=== PATIENT | male | born 1955 | race Caucasian/White ===

== ENCOUNTER 2017-03-27 00:28 | Day surgery (SDC) | payer OTHER ==
[2017-01-14 16:48] VITALS: Ht 188 cm; Wt 79.4 kg
[~2017-03-27] VITALS: Ht 188 cm; Wt 79.4 kg
[2017-03-27] VITALS (7 sets, daily range): BP systolic 97–152; BP diastolic 64–96
[~2017-03-27 00:28] MED LIST: ACET-1966 PO; GLUC-198 PO; HYDR-4309 PO; IBUP200C71 PO; KET10 PO; LEVO25TA61 PO; LEVO75TA73 PO; MULT-1335 PO; MULT-976 PO; Pantoprazole Sod PO; VITE400 PO
[2017-03-27] MEDS ORDERED: PROPOFOL EMUL(*) 10MG/ML 20 ML 60 ML ONE (07:07)
[2017-03-27] MEDS ORDERED: LIDOCAINE MPF 1% 5 ML VIAL ONE (07:07)
--- NOTE | 2017-03-27 07:28 | Post Operative Progress Note ---
Post Operative Progress Note Date: Mar 27, 2017 Time: 11:28 Surgeon: estrellita Anesthesia: dr le Pre-Op Diagnosis: screening colonoscopy Post-Op Diagnosis: 3 mm polyp at 55 cm Procedure(s): colonoscopy with polypectomy MARILU CALDERA MD Mar 27, 2017 07:28
--- NOTE | 2017-03-27 07:29 | Short(Outpt) Discharge Summary ---
Discharge Summary Reason for Hosp/Final Diag: (1) Encounter for screening colonoscopy Hospital Course & Plan: 3 mm polyp at 55cm Departure Discharge to: Home Discharge Instructions Home Meds Reported Medications Levothyroxine Sodium (LEVOTHYROXINE SODIUM) 75 Mcg Tablet, 75 MCG PO QDAY, TAB 08/03/15 Discontinued Reported Medications Multivitamin With Minerals (MULTIPLE VITAMIN) 1 Each Tablet, 1 EACH PO DAILY, TAB 01/13/17 Discontinued Scripts Hydrocodone Bit/Acetaminophen (NORCO 5-325 TABLET) 1 Each Tablet, 1-2 EACH PO Q4H Y for PAIN, #30 TAB Prov:MARILU CALDERA MD 01/15/17 Ketorolac Tromethamine (KETOROLAC TROMETHAMINE) 10 Mg Tab, 10 MG PO Q6H, #20 TAB Prov:MARILU CALDERA MD 01/15/17 Diet: Regular Activity: As Tolerated MARILU CALDERA MD Mar 27, 2017 07:29
[2017-03-27] MEDS ORDERED: LIDOCAINE/SOD BICARB 8.4% SYR ID ONE (10:15)
[2017-03-27] MEDS ORDERED: MIDAZOLAM 2 MG/2 ML VIAL IVP PRN (10:15)
[2017-03-27] MEDS ORDERED: NORMOSOL R SOLN(*) 1000 ML BAG 1,000 ML IV PRN (10:15)
--- NOTE | 2017-03-27 12:16 | NACHTIGAL COLONOSCOPY ---
EVENT DATE: March 27, 2017 SURGEON: Hill Esteves MD ANESTHESIOLOGIST: Ant Chester MD ANESTHESIA: Sedation PREOPERATIVE DIAGNOSIS Screening colonoscopy. POSTOPERATIVE DIAGNOSIS A 3 mm polyp at 55 cm. PROCEDURE PERFORMED Colonoscopy with polypectomy. DESCRIPTION OF PROCEDURE The patient was placed in the left lateral decubitus position and given intravenous sedation. Rectal exam was unremarkable. The flexible colonoscope was inserted and advanced to the cecum. He had an excellent bowel prep. The ileocecal valve, base of the cecum were identified. The scope was slowly withdrawn. Care were taken to look behind the haustral folds. No abnormalities were noted in the cecum, right colon, transverse colon. At 55 cm , he had a 3 mm projection. This was removed with a couple of bites of the cold cup. The rest of the sigmoid colon was normal. Rectum was normal. Scope was retroflexed; that appeared to be normal. MTDD
== END 2017-03-27 13:00 | disposition home or self-care (01) ==
LOC: OR 00:28
PROVIDERS: ATTEND Surgery
DX: Z12.11 Encounter for screening for malignant neoplasm of colon (principal); K63.5 Polyp of colon
CPT/HCPCS: 00811; 45380; 88305; J2001; J2704

== ENCOUNTER → 2018-02-13 | Outpatient (REF) | payer OTHER ==
[2017-01-14 16:48] VITALS: BMI 22.1
[~2018-02-13] MED LIST changes: -HYDR-4309 PO; +HYDR-653 PO; +IBUP-136 PO; -IBUP200C71 PO
[2018-02-13 15:23] LABS: PLATELET COUNT, AUTOMATED 199 K/uL (150-450)
== END ==
LOC: ZZSTITCHES 15:05
PROVIDERS: ATTEND Physician Assistant
DX: R19.7 Diarrhea, unspecified (principal); R31.9 Hematuria, unspecified; B96.89 Other specified bacterial agents as the cause of diseases classified elsewhere
CPT/HCPCS: 81001; 82040; 82247; 82310; 82374; 82435; 82565; 82947; 84075; 84132; 84155; 84295; 84450; 84460; 84520; 85025; 87077; 87088; 87186